=== PATIENT | female | born 1985 | race Asian ===

== ENCOUNTER 2023-10-11 19:36 | Emergency (ER) | payer MEDICAID ==
[~2023-10-11] VITALS: Ht 162.6 cm; Wt 81.6 kg
[2023-10-11 19:47] VITALS: BP 149/78; PULSE 144; RESP 20; TEMP 100; O2SAT 99
[2023-10-11] MEDS ORDERED: ACETAMINOPHEN 325 MG TAB PO ONE (19:50)
[2023-10-11] MEDS ORDERED: NACL 0.9% 1,000 ML IV ONE (19:50)
[2023-10-11 19:52] VITALS: O2SAT 99
[2023-10-11 20:42] LABS: BASOPHILS % (AUTO) 0.3 % (0.0-2.0); EOSINOPHILS % (AUTO) 0.1 % (0.0-4.0); HEMATOCRIT 41.7 % (36-48); HEMOGLOBIN 14.1 g/dL (12.0-16.0); LYMPHOCYTES # (AUTO) 1.5 K/uL (2.5-16.5); MEAN CORPUSCULAR HEMOGLOBIN 31 pg (27-31); MEAN CORPUSCULAR HGB CONC 34 g/dL (33-37); MEAN CORPUSCULAR VOLUME 90.4 fL (80-94); MONOCYTES # (AUTO) 1.1 K/uL (0.8-1.0); MONOCYTES % (AUTO) 8.8 % (1.7-9.3); NEUTROPHILS # (AUTO) 10.2 K/uL (1.8-7.7); NEUTROPHILS % (AUTO) 78.8 % (42.2-75.2); PLATELET COUNT (AUTO) 212 K/uL (140-450); RED BLOOD CELL COUNT(AUTO) 4.61 MIL/uL (4.20-5.40); RED CELL DISTRIBUTION WIDTH 14.9 % (11.6-13.7); WHITE BLOOD COUNT (AUTO) 12.9 K/uL (4.8-10.8)
[2023-10-11 20:50] LABS: ANION GAP 14.8 (8-16); CALCIUM 9.3 mg/dL (8.5-10.1); CARBON DIOXIDE 28.4 mmol/L (21-32); CREATININE 0.8 mg/dL (0.6-1.3); POTASSIUM 4.2 mmol/L (3.5-5.1)
[2023-10-11 20:55] LABS: FLU A ANTIGEN negative (NEGATIVE); FLU B ANTIGEN NEGATIVE (NEGATIVE)
[2023-10-11 21:03] LABS: LACTIC ACID 2.2 mmol/L (0.4-2.0)
[2023-10-11 21:06] LABS: THYROID STIMULATING HORMONE 1.31 uIU/mL (0.34-3.74)
[2023-10-11 21:33] LABS: APPEARANCE,URINE CLEAR (CLEAR); BILIRUBIN,URINE NEGATIVE (NEGATIVE); BLOOD, URINE NEGATIVE (NEGATIVE); COLOR,URINE YELLOW (YELLOW); LEUKOCYTE ESTERASE ,URINE 1+ (NEGATIVE); NITRITE, URINE NEGATIVE (NEGATIVE); PROTEIN,URINE NEGATIVE (NEGATIVE); UGLUCOSE NEGATIVE (NEGATIVE); UROBILINOGEN,URINE 0.2 EU/dL (0.2 - 1)
[2023-10-11 21:44] LABS: BACTERIA,URINE 10-30 (MOD) /HPF (None Seen); RBC,URINE 0-5 /HPF (0-5); SQUAMOUS EPITHELIAL CELL,UR 4-10 (MOD) /LPF (0-3 (FEW))
[2023-10-11 21:45] LABS: AMPHETAMINE, URINE NEGATIVE ng/ml (NEG <=1000); BARBITURATE, URINE NEGATIVE ng/ml (NEG <=200); BENZODIAZEPINE, URINE NEGATIVE ng/mL (NEG <=200); CANNABINOID, URINE NEGATIVE ng/mL (NEG <=50); COCAINE, URINE NEGATIVE ng/mL (NEG <=300); OPIATE, URINE NEGATIVE ng/mL (NEG <=2000); PHENCYCLIDINE SCREEN,URINE NEGATIVE ng/mL (NEG <=25)
[2023-10-11] MEDS ORDERED: cefTRIAXone 1,000 MG in LIDOCAINE MPF 1% 2.1 ML IM ONE (22:30)
[2023-10-11] MEDS ORDERED: CEPH-588 PO (22:37)
[2023-10-11] MEDS ORDERED: cefTRIAXone 1,000 MG VIAL ONE (22:50)
[2023-10-11] MEDS ORDERED: LIDOCAINE MPF 1% 5 ML ONE (22:51)
[2023-10-11 23:18] VITALS: BP 140/71; PULSE 136; RESP 18; TEMP 101.8; O2SAT 98
[2023-10-12] MEDS ORDERED: CEPH-588 PO (16:28)
[2023-10-12] MEDS ORDERED: KEFSUS PO (16:45)
== END 2023-10-11 23:08 | disposition home or self-care (01) ==
LOC: MED 19:36
DX: A41.9 Sepsis, unspecified organism (principal); Z20.822 Contact with and (suspected) exposure to COVID-19; N39.0 Urinary tract infection, site not specified; R00.0 Tachycardia, unspecified; Z88.0 Allergy status to penicillin; Z88.1 Allergy status to other antibiotic agents; Z79.899 Other long term (current) drug therapy
CPT/HCPCS: 36415; 71045; 80048; 80305; 81001; 83605; 83880; 84443; 84484; 85025; 87040; 87086; 87426; 87804; 93005; 99285; J0696; J2001; Q0092

== ENCOUNTER 2023-10-12 13:20 | Emergency (ER) | payer MEDICAID ==
[~2023-10-12] VITALS: Ht 147.3 cm; Wt 77.1 kg
[~2023-10-12 13:20] MED LIST: CEPH-588 PO
[2023-10-12 13:28] VITALS: BP 138/76; PULSE 127; RESP 20; TEMP 101.3; O2SAT 96
[2023-10-12] MEDS ORDERED: ACETAMINOPHEN EXTRA STRENGTH 500 MG TAB PO ONE (16:10)
[2023-10-12] MEDS ORDERED: NACL 0.9% 2,000 ML IV SCH (16:10)
[2023-10-12] MEDS ORDERED: CEPH-588 PO (16:28)
[2023-10-12] MEDS ORDERED: KEFSUS PO (16:45)
== END 2023-10-12 16:26 | disposition left against medical advice (07) ==
LOC: MED 13:20
DX: N30.00 Acute cystitis without hematuria (principal); R00.0 Tachycardia, unspecified; R50.9 Fever, unspecified; Z79.2 Long term (current) use of antibiotics; Z88.2 Allergy status to sulfonamides
CPT/HCPCS: 99281; 99283